=== PATIENT | male | born 1940 | race Caucasian/White ===

== ENCOUNTER → 2018-12-17 | Outpatient (CLI) | payer MEDICARE ==
[2018-12-17 17:21] LABS: Bilirubin, Urine Neg (Neg); Blood, Urine 1+ (Neg); Glucose Qualitative, Urine 4+ (Neg); Ketones, Urine 1+ (Neg); Leukocyte Esterase, Urine 1+ (Neg); Nitrite, Urine Neg (Neg); Protein, Urine 1+ (Neg); Specific Gravity, Urine 1.025 (1.003-1.022); Urobilinogen, Urine 1+ (Normal)
[2018-12-17 17:32] LABS: Appearance, Urine Clear (Clear); Color, Urine Yellow (P-Yellow)
[2018-12-17 17:33] LABS: White Blood Cells, Urine 25-50 /hpf (0-5); Yeast/Fungi Urine Few /hpf
[2018-12-17 17:34] LABS: Bacteria Mod /hpf; Calcium Oxalate Crystals Rare /hpf; Mucus Mod (0-Heavy); Squamous Epithelial Cells Few /hpf (Few)
== END | disposition home or self-care (01) ==
LOC: LAB SHORT 12:00 → LAB SRC 12:00
PROVIDERS: Nurse Practitioner Family
DX: E11.9 Type 2 diabetes mellitus without complications (principal); R33.9 Retention of urine, unspecified
CPT/HCPCS: 81001; 82043; 87086

== ENCOUNTER 2019-03-04 07:30 | Day surgery (SDC) | payer MEDICARE | END 2019-03-04 23:42 | disposition home or self-care (01) | LOC: WOUND 07:30 | PROC: 0HDMXZZ Extraction of Right Foot Skin, External Approach (ICD-10-PCS; principal; 2019-03-04) | DX: E11.621 Type 2 diabetes mellitus with foot ulcer (principal); L97.411 Non-pressure chronic ulcer of right heel and midfoot limited to breakdown of skin; E11.9 Type 2 diabetes mellitus without complications; M19.90 Unspecified osteoarthritis, unspecified site; E78.00 Pure hypercholesterolemia, unspecified; F03.90 Unspecified dementia, unspecified severity, without behavioral disturbance, psychotic disturbance, mood disturbance, and anxiety | CPT/HCPCS: 87071; 87075; 87205; G0463 ==

== ENCOUNTER 2019-06-13 19:04 | Emergency (ER) | payer MEDICARE ==
[~2019-06-13] VITALS: Ht 182.9 cm; Wt 81.7 kg
[2019-06-13] MEDS ORDERED: PIOGLITAZONE HC30 MG PO (19:13)
[2019-06-13] MEDS ORDERED: GLIP2.5ER PO (19:13)
[2019-06-13] MEDS ORDERED: Metformin HCl1000 MG PO (19:13)
[2019-06-13] MEDS ORDERED: PRINIVIL10 MG PO (19:13)
[2019-06-13] MEDS ORDERED: DONEPEZIL HCL5 M1 PO (19:13)
[2019-06-13 21:00] LABS: BASOPHILS ABSOLUTE AUTO 0.02 K/mm3 (0.00-0.23); BASOPHILS PERCENT AUTO 0 % (0-2); EOSINOPHILS PERCENT AUTO 0 % (0-6); Hematocrit 43.6 % (37.0-53.0); Hemoglobin 14.2 g/dL (13.5-17.5); IMMATURE GRAN ABSOLUTE AUTO 0.03 K/mm3 (0.00-0.10); IMMATURE GRAN PERCENT AUTO 0 % (0-1); LYMPHOCYTES PERCENT AUTO 7 % (21-46); MONOCYTES ABSOLUTE AUTO 0.69 K/mm3 (0.16-1.47); MONOCYTES PERCENT AUTO 7 % (4-13); Mean Corpuscular HGB Conc 32.6 g/dL (31.5-36.5); Mean Corpuscular Volume 98 fL (80-100); Mean Platelet Volume 9.7 fL (9.1-12.4); NEUTROPHILS ABSOLUTE AUTO 8.12 K/mm3 (1.96-9.15); NEUTROPHILS PERCENT AUTO 85 % (41-73); Platelet Count 287 K/mm3 (150-400); RDW Coefficient Variation 14.1 % (11.7-14.2); RDW Standard Deviation 50.9 fL (35.1-46.3); Red Blood Cell Count 4.44 M/mm3 (4.30-5.90); White Blood Cell Count 9.56 K/mm3 (4.00-11.30)
[2019-06-13 21:23] LABS: Alanine Aminotransfer (ALT/SGP 25 U/L (12-78); Albumin, Blood 3.2 g/dL (3.4-5.0); Albumin/Globulin Ratio 0.7 (0.8-1.8); Alk Phos 133 U/L (50-136); Anion Gap 5 mmol/L (6-16); Aspartate Aminotrans (AST/SGOT 23 U/L (12-37); Bilirubin, Total 0.6 mg/dL (0.1-1.0); Blood Urea Nitrogen 20 mg/dL (8-24); CO2, Blood 29 mmol/L (21-32); Calcium, Blood 9.4 mg/dL (8.5-10.1); Chloride, Blood 106 mmol/L (98-108); Creatinine, Blood 0.57 mg/dL (0.60-1.20); Globulin, Blood 4.3 g/dL (2.2-4.0); Glomerular Filtration Rate >60 (60-); Glucose, Blood 251 mg/dL (70-99); Magnesium, Blood 1.9 mg/dL (1.6-2.4); Potassium, Blood 4.1 mmol/L (3.5-5.5); Sodium, Blood 140 mmol/L (136-145); Total Protein, Blood 7.5 g/dL (6.4-8.2); Troponin I <0.015 ng/mL (0.000-0.040)
[2019-06-13 21:43] LABS: Source, Urine Voided
[2019-06-13 21:47] LABS: Appearance, Urine Clear (Clear); Bilirubin, Urine Neg (Neg); Blood, Urine 2+ (Neg); Color, Urine Amber (P-Yellow); Glucose Qualitative, Urine 4+ (Neg); Ketones, Urine 1+ (Neg); Leukocyte Esterase, Urine Neg (Neg); Nitrite, Urine Neg (Neg); Protein, Urine 1+ (Neg); Specific Gravity, Urine 1.015 (1.003-1.022); Urobilinogen, Urine 2+ (Normal)
[2019-06-13 21:53] LABS: Bacteria Few /hpf; Squamous Epithelial Cells Not Seen /hpf (Few); White Blood Cells, Urine 0-2 /hpf (0-5)
[2019-06-13 21:54] LABS: Hyaline Casts 0-2 /lpf (0-2)
[2019-06-13] MEDS ORDERED: AZIT500 PO (22:20)
== END 2019-06-13 23:28 | disposition home or self-care (01) ==
LOC: ER 19:04
PROVIDERS: Emergency Medicine
DX: J18.9 Pneumonia, unspecified organism (principal); R91.8 Other nonspecific abnormal finding of lung field; F03.90 Unspecified dementia, unspecified severity, without behavioral disturbance, psychotic disturbance, mood disturbance, and anxiety; Z87.891 Personal history of nicotine dependence; Z79.899 Other long term (current) drug therapy; Z79.84 Long term (current) use of oral hypoglycemic drugs
CPT/HCPCS: 36415; 51701; 70450; 71046; 80053; 81001; 83735; 84443; 84484; 85025; 93005; 93010; 96360-59; 96361-59; 99285-25; J7030

== ENCOUNTER 2019-07-24 17:23 | Observation (INO) | payer MEDICARE ==
[~2019-07-24] VITALS: Ht 185.4 cm; Wt 64.9 kg
[~2019-07-24 17:23] MED LIST: AZIT500 PO; DONEPEZIL HCL5 M1 PO; GLIP2.5ER PO; Metformin HCl1000 MG PO; PIOGLITAZONE HC30 MG PO; PRINIVIL10 MG PO
[2019-07-24 19:32] LABS: BASOPHILS ABSOLUTE AUTO 0.01 K/mm3 (0.00-0.23); BASOPHILS PERCENT AUTO 0 % (0-2); EOSINOPHILS PERCENT AUTO 0 % (0-6); Hematocrit 41.6 % (37.0-53.0); Hemoglobin 13.8 g/dL (13.5-17.5); IMMATURE GRAN ABSOLUTE AUTO 0.03 K/mm3 (0.00-0.10); IMMATURE GRAN PERCENT AUTO 0 % (0-1); LYMPHOCYTES ABSOLUTE AUTO 0.84 K/mm3 (0.84-5.20); LYMPHOCYTES PERCENT AUTO 10 % (21-46); MONOCYTES ABSOLUTE AUTO 0.54 K/mm3 (0.16-1.47); MONOCYTES PERCENT AUTO 7 % (4-13); Mean Corpuscular HGB 32.9 pg (26.0-34.0); Mean Corpuscular HGB Conc 33.2 g/dL (31.5-36.5); Mean Corpuscular Volume 99 fL (80-100); Mean Platelet Volume 9.4 fL (9.1-12.4); NEUTROPHILS ABSOLUTE AUTO 6.75 K/mm3 (1.96-9.15); NEUTROPHILS PERCENT AUTO 83 % (41-73); Platelet Count 303 K/mm3 (150-400); RDW Coefficient Variation 14.2 % (11.7-14.2); RDW Standard Deviation 51.6 fL (35.1-46.3); Red Blood Cell Count 4.19 M/mm3 (4.30-5.90); White Blood Cell Count 8.17 K/mm3 (4.00-11.30)
[2019-07-24 19:36] LABS: Source, Urine Clean Catch
[2019-07-24 19:40] LABS: Bilirubin, Urine Neg (Neg); Blood, Urine 5+ (Neg); Glucose Qualitative, Urine 4+ (Neg); Ketones, Urine 2+ (Neg); Leukocyte Esterase, Urine 1+ (Neg); Nitrite, Urine Neg (Neg); Protein, Urine 1+ (Neg); Specific Gravity, Urine 1.025 (1.003-1.022); Urobilinogen, Urine 1+ (Normal)
[2019-07-24 19:47] LABS: Appearance, Urine Clear (Clear); Color, Urine Yellow (P-Yellow)
[2019-07-24 19:51] LABS: Bacteria Few /hpf; Red Blood Cells, Urine 25-50 /hpf (0-2); Squamous Epithelial Cells Few /hpf (Few); White Blood Cells, Urine 0-2 /hpf (0-5)
[2019-07-24 19:52] LABS: Anion Gap 6 mmol/L (6-16); Blood Urea Nitrogen 24 mg/dL (8-24); Bun/Creatinine Ratio 37.2 (12.0-20.0); CO2, Blood 29 mmol/L (21-32); Calcium, Blood 9.6 mg/dL (8.5-10.1); Chloride, Blood 104 mmol/L (98-108); Creatinine, Blood 0.65 mg/dL (0.60-1.20); Glomerular Filtration Rate >60 (60-); Glucose, Blood 202 mg/dL (70-99); Potassium, Blood 4.2 mmol/L (3.5-5.5); Sodium, Blood 139 mmol/L (136-145)
--- NOTE | 2019-07-25 00:34 | NUR ---
4339 PT TO MEDICAL FLOOR VIA STRETCHER. PT ORIENTED TO ROOM. ADMIT ASSESSMENT COMPLETED. DECUBITIS ULCER PRESENT UPON ADMISSION ON BILATERAL HEEL AND COCCYX. HEEL PROTECTOR AND SACRAL MEPELIX APPLIED. PICTURES OF WOUNDS TAKEN. SIGNATURE FOR BLOOD CONSENT FORM AND CONSENT TO PHOTOGRAPH RECIVED. PT WAS OFFERED SNACKS. PLEASANT AND COOPERATIVE. A/O X1 TO SELF. DELAYS IN ANSWERING QUESTIONS. PT STATES HIS MEMORY CLOUDED. RESTING IN BED NOW.
--- NOTE | 2019-07-25 04:27 | NUR ---
RN ANESTHESIOLOGY SUMMARY PLESEANT AND COOPERATIVE UPON ADMIT. PT SLEPT WELL THROUGHOUT THE NIGHT. A/O1 TO SELF. SLOW TO RESPOND. HOSPITALIST CALLED AND NO IV ACCESS ORDER PLACED. BED ALARM ON, PT DID NOT GET UP FROM THE BED TONIGHT. BED IN LOWEST POSITION, CALL LIGHT WITHIN REACH. VSS, WILL CONTINUE TO MONITOR.
--- NOTE | 2019-07-25 16:48 | NUR ---
SHIFT SUMMARY PLAN IS FOR PLACEMENT TO A SNF. CAREGIVER STATES SHE CANNOT PROVIDE THE CARE THAT THIS PT NEEDS. PT IS ON ROOM AIR, INCONTINENT, ATTENDS IN PLACE. CONFUSED @ TIMES. AC CHEMSTICKS. CHANGED TODAY TO ADA DIET. A&O TO SELF AND PLACE. HX: DEMENTIA, DM 2, MENINGIOMAS. PT IS A 1 ASSIST W/FWW. HUMALOG WAS NEEDED THIS SHIFT FOR ELEVATED GLUCOSE LEVELS, SEE EMAR.
--- NOTE | 2019-07-26 05:19 | NUR ---
SHIFT SUMMARY: VSS. AFEB. ALERT, CONFUSED. DOES NOT COMMUNICATE HIS NEEDS WELL, RATHER SEEMS TO WAIT FOR STAFF TO ADDRESS NEEDS BEFORE SHARING HIS PREFERENCES. PT PULLED OFF HIS DNR AND ID BAND. DNR BAND PLACED ON DOOR FRAME. DENIES PAIN. DRSG IN PLACE TO COCCYX AND B HEELS. INCONTINENT, BED LOW, CALL BUTTON IN REACH, BED ALARM ON. HAS SLEPT MOST OF THE NIGHT.
--- NOTE | 2019-07-26 17:16 | NUR ---
PATIENT A/O, BED ALARM AND CHAIR ALARM USED FOR SAFETY. PATIENT DOES NOT USE CALL LIGHT AND REQUIRES FREQUENT CHECKS. INCONTINENT OF BOWEL AND BLADDER, WEARING ATTENDS. UP TO CHAIR WITH FWW, GAIT BELT AND SBA. CALM AND COOPERATIVE WITH CARE. BLOOD SUGAR THIS AM WAS 59, CAME UP WITH ORANGE JUICE AND BREAKFAST. DENIES ANY PAIN. HEEL DRESSING TO DECUB ULCERS REMAIN C/D/I. TOLERATING ADA DIET, NEEDS ENCOURAGEMENT TO EAT. SWALLOWS PILLS WHOLE WITH WATER. AWAITING PLACEMENT.
--- NOTE | 2019-07-27 05:36 | NUR ---
SHIFT SUMMARY PT HAS BEEN COOPERATIVE AND KIND, NO SIGNS OF AGITATION AT ALL. PT SPEAKS VERY FEW WORDS, BUT ANSWERS YES/NO QUESTIONS APPROP. ORIENTED TO SELF, PLACE, SURROUNDINGS. BED ALARM ON FOR SAFETY, HOWEVER PT HAS NOT BEEN IMPULSIVE TONIGHT. VSS, LS DIM, RESP E/U ON RA. INCONTINENT OF BOWEL AND BLADDER, MINIOR SKIN BREAKDOWN NOTED TO COCCYX, MEPILEX CHANGED TONIGHT AND REPOSITIONED Q2H. DENIES ANY PAIN OR DISCOMFORT. ADMINISTERED 15 UNITS LANTUS TONIGHT WITH A SNACK, ABLE TO FEED SELF. WILL CONT TO MONITOR AND PROVIDE CARE UNTIL PRESUMED BY ONCOMING RN.
--- NOTE | 2019-07-27 18:36 | NUR ---
PATIENT A/OX3, CONFUSED ABOUT SITUTATION AT TIMES. UP TO CHAIR FOR BREAKFAST AND HAS REFUSED TO GET UP FOR LUNCH AND DINNER. PATIENT WAS VERY TIRED THIS SHIFT AND NOT INTERESTED IN HIS MEALS. VSS, ON RA. FOAM DRESSINGS TO HEELS REMAIN C/D/I, MEPILEX TO PRESSURE SORE ON COCCYX CHANGED TODAY. PATIENT INCONTINENT OF BOWEL AND BLADDER. AWAITING PLACEMENT.
--- NOTE | 2019-07-28 05:55 | NUR ---
SHIFT SUMMARY: BP 88/60 AT START OF SHIFT, UP TO 100/59 UPON RECHECK. AFEB. MAINTAINING 02 WNL ON RA. A/O X2, CONFUSED AT BASELINE. PLEASANT. DOES NOT COMMUNICATE NEEDS UNLESS PROMPTED. RETURNS TO RIGHT SIDE LYING POSITION AFTER TURNS. DENIES PAIN. APPEARS TO HAVE SLEPT OFF AND ON. BED LOW, ALARM ON, CALL BUTTON IN REACH.
--- NOTE | 2019-07-28 17:13 | NUR ---
SHIFT SUMMARY PT HAS BEEN LAYING IN BED ALL SHIFT. PT HAS DECLINED TO GET OUT OF BED FOR PHYSICAL THERAPY AND STAFF FOR MEALS. PT INCONTINENT OF URINE AND STOOLS THIS SHIFT. DRESSING TO COCCYX AND HEELS CHANGED THIS SHIFT WITH BEDBATH. NO ACUTE CHANGES THIS SHIFT. PT WAITING FOR PLACEMENT. CALL LIGHT IN REACH AND BED ALARM ON FOR SAFETY. WILL CONTINUE TO MONITOR FOR CHANGES AND REPORT TO ONCOMING RN.
--- NOTE | 2019-07-29 07:51 | NUR ---
SHIFT SUMMARY PATIENT SEEMED FLAT AND WITHDRAWN THIS SHIFT. HE VERBALIZES A DESIRE TO GET OUT OF THE HOSPITAL AND GO HOME. HE ASKED TWICE OVER NIGHT FOR PRN TYLENOL TO HELP WITH HIS CHRONIC BACK PAIN. HE WAS ABLE TO SLEEP MOST OF THE NIGHT. BED IN LOWEST POSITION WITH WHEELS LOCKED AND ALARM ON. CALL LIGHT WITHIN REACH. REPORT GIVEN TO ONCOMING RN.
--- NOTE | 2019-07-29 15:37 | NUR ---
PT DISCHARGED PT DISCHARGED IN STABLE CONDITION WITH VSS. NO CHANGES IN ASSESSMENT PRIOR TO DC. PT WOUNDS REDRESSED & PICS TAKEN. PT DRESSED & CHANGED PRIOR TO DC. [facility] PICKED UP PT & TRANSPORTING HOME INTO CARE OF HIS CAREGIVER. DC INSTRUCTIONS SENT WITH PT.
== END 2019-07-29 15:33 | disposition home or self-care (01) ==
LOC: ER 17:23 → MEDS 17:24
PROVIDERS: Physician Assistant; ADMIT Hospitalist
DX: F01.50 Vascular dementia, unspecified severity, without behavioral disturbance, psychotic disturbance, mood disturbance, and anxiety (principal); D32.0 Benign neoplasm of cerebral meninges; E11.9 Type 2 diabetes mellitus without complications; Z66 Do not resuscitate; Z79.84 Long term (current) use of oral hypoglycemic drugs; Z79.899 Other long term (current) drug therapy; Z96.653 Presence of artificial knee joint, bilateral; Z86.73 Personal history of transient ischemic attack (TIA), and cerebral infarction without residual deficits; Z87.891 Personal history of nicotine dependence
CPT/HCPCS: 36415; 51701; 70450; 80048; 81001; 82947; 85025; 97110; 97116; 97161; 97530; 99285-25; A9270; J1650

== ENCOUNTER 2019-08-05 14:49 | Emergency (ER) | payer MEDICARE ==
[~2019-08-05] VITALS: Ht 182.9 cm; Wt 65.0 kg
[2019-08-05] MEDS ORDERED: LIDO700A20 TOP (16:04)
== END 2019-08-05 17:00 | disposition home or self-care (01) ==
LOC: ER 14:49
DX: M54.5 Low back pain (principal); Z79.899 Other long term (current) drug therapy; Z79.84 Long term (current) use of oral hypoglycemic drugs; F03.90 Unspecified dementia, unspecified severity, without behavioral disturbance, psychotic disturbance, mood disturbance, and anxiety; Z87.891 Personal history of nicotine dependence
CPT/HCPCS: 72100; 99283-25

== ENCOUNTER 2019-08-20 11:02 | Emergency (ER) | payer MEDICARE ==
[~2019-08-20] VITALS: Ht 177.8 cm; Wt 61.2 kg
[~2019-08-20 11:02] MED LIST changes: +LIDO700A20 TOP
[2019-08-20 13:01] LABS: BASOPHILS ABSOLUTE AUTO 0.02 K/mm3 (0.00-0.23); BASOPHILS PERCENT AUTO 0 % (0-2); EOSINOPHILS ABSOLUTE AUTO 0.01 K/mm3 (0.00-0.68); EOSINOPHILS PERCENT AUTO 0 % (0-6); Hematocrit 46.7 % (37.0-53.0); IMMATURE GRAN ABSOLUTE AUTO 0.04 K/mm3 (0.00-0.10); IMMATURE GRAN PERCENT AUTO 1 % (0-1); LYMPHOCYTES ABSOLUTE AUTO 0.97 K/mm3 (0.84-5.20); LYMPHOCYTES PERCENT AUTO 12 % (21-46); MONOCYTES ABSOLUTE AUTO 0.54 K/mm3 (0.16-1.47); MONOCYTES PERCENT AUTO 7 % (4-13); Mean Corpuscular HGB 32.1 pg (26.0-34.0); Mean Corpuscular HGB Conc 32.1 g/dL (31.5-36.5); Mean Corpuscular Volume 100 fL (80-100); Mean Platelet Volume 9.5 fL (9.1-12.4); NEUTROPHILS ABSOLUTE AUTO 6.56 K/mm3 (1.96-9.15); NEUTROPHILS PERCENT AUTO 81 % (41-73); Platelet Count 293 K/mm3 (150-400); RDW Coefficient Variation 14.2 % (11.7-14.2); RDW Standard Deviation 51.9 fL (35.1-46.3); Red Blood Cell Count 4.68 M/mm3 (4.30-5.90); White Blood Cell Count 8.14 K/mm3 (4.00-11.30)
[2019-08-20 13:25] LABS: Alanine Aminotransfer (ALT/SGP 24 U/L (12-78); Albumin, Blood 3.2 g/dL (3.4-5.0); Albumin/Globulin Ratio 0.7 (0.8-1.8); Alk Phos 101 U/L (50-136); Anion Gap 6 mmol/L (6-16); Aspartate Aminotrans (AST/SGOT 15 U/L (12-37); Bilirubin, Total 0.5 mg/dL (0.1-1.0); Blood Urea Nitrogen 14 mg/dL (8-24); CO2, Blood 29 mmol/L (21-32); Calcium, Blood 9.3 mg/dL (8.5-10.1); Chloride, Blood 105 mmol/L (98-108); Creatinine, Blood 0.48 mg/dL (0.60-1.20); Globulin, Blood 4.4 g/dL (2.2-4.0); Glomerular Filtration Rate >60 (60-); Glucose, Blood 186 mg/dL (70-99); Potassium, Blood 4.5 mmol/L (3.5-5.5); Sodium, Blood 140 mmol/L (136-145); Total Protein, Blood 7.6 g/dL (6.4-8.2)
[2019-08-20 13:44] LABS: Source, Urine Clean Catch
[2019-08-20 13:50] LABS: Appearance, Urine Clear (Clear); Bilirubin, Urine Neg (Neg); Blood, Urine 2+ (Neg); Color, Urine Yellow (P-Yellow); Glucose Qualitative, Urine 4+ (Neg); Ketones, Urine 1+ (Neg); Leukocyte Esterase, Urine 1+ (Neg); Nitrite, Urine Neg (Neg); Protein, Urine 2+ (Neg); Specific Gravity, Urine 1.025 (1.003-1.022); Urobilinogen, Urine 1+ (Normal)
[2019-08-20 14:09] LABS: Amorphous Light (0-Heavy); Bacteria Few /hpf; Squamous Epithelial Cells Rare /hpf (Few)
== END 2019-08-20 15:34 | disposition home or self-care (01) ==
LOC: ER 11:02
PROVIDERS: Physician Assistant
DX: S63.502A Unspecified sprain of left wrist, initial encounter (principal); F03.90 Unspecified dementia, unspecified severity, without behavioral disturbance, psychotic disturbance, mood disturbance, and anxiety; Z79.899 Other long term (current) drug therapy; W19.XXXA Unspecified fall, initial encounter
CPT/HCPCS: 36415; 51701; 73110; 73130; 73502; 80053; 81001; 85025; 87086; 99284-25

== ENCOUNTER 2019-08-21 22:38 | Observation (INO) | payer MEDICARE ==
[~2019-08-21] VITALS: Ht 182.9 cm; Wt 63.0 kg
[2019-08-22 00:39] LABS: BASOPHILS ABSOLUTE AUTO 0.02 K/mm3 (0.00-0.23); BASOPHILS PERCENT AUTO 0 % (0-2); EOSINOPHILS ABSOLUTE AUTO 0.01 K/mm3 (0.00-0.68); EOSINOPHILS PERCENT AUTO 0 % (0-6); Hematocrit 40.4 % (37.0-53.0); Hemoglobin 13.1 g/dL (13.5-17.5); IMMATURE GRAN ABSOLUTE AUTO 0.02 K/mm3 (0.00-0.10); IMMATURE GRAN PERCENT AUTO 0 % (0-1); LYMPHOCYTES ABSOLUTE AUTO 0.67 K/mm3 (0.84-5.20); LYMPHOCYTES PERCENT AUTO 12 % (21-46); MONOCYTES ABSOLUTE AUTO 0.41 K/mm3 (0.16-1.47); MONOCYTES PERCENT AUTO 7 % (4-13); Mean Corpuscular HGB 32.3 pg (26.0-34.0); Mean Corpuscular HGB Conc 32.4 g/dL (31.5-36.5); Mean Corpuscular Volume 100 fL (80-100); Mean Platelet Volume 9.3 fL (9.1-12.4); NEUTROPHILS ABSOLUTE AUTO 4.47 K/mm3 (1.96-9.15); NEUTROPHILS PERCENT AUTO 80 % (41-73); Platelet Count 257 K/mm3 (150-400); RDW Coefficient Variation 13.9 % (11.7-14.2); RDW Standard Deviation 51.1 fL (35.1-46.3); Red Blood Cell Count 4.06 M/mm3 (4.30-5.90)
[2019-08-22 00:58] LABS: Alanine Aminotransfer (ALT/SGP 17 U/L (12-78); Albumin, Blood 3.1 g/dL (3.4-5.0); Albumin/Globulin Ratio 0.8 (0.8-1.8); Alk Phos 100 U/L (50-136); Anion Gap 6 mmol/L (6-16); Aspartate Aminotrans (AST/SGOT 19 U/L (12-37); Bilirubin, Total 0.7 mg/dL (0.1-1.0); Blood Urea Nitrogen 19 mg/dL (8-24); Bun/Creatinine Ratio 38.6 (12.0-20.0); CO2, Blood 29 mmol/L (21-32); Calcium, Blood 9.1 mg/dL (8.5-10.1); Chloride, Blood 105 mmol/L (98-108); Creatinine, Blood 0.49 mg/dL (0.60-1.20); Globulin, Blood 3.9 g/dL (2.2-4.0); Glomerular Filtration Rate >60 (60-); Glucose, Blood 176 mg/dL (70-99); Potassium, Blood 4.2 mmol/L (3.5-5.5); Sodium, Blood 140 mmol/L (136-145)
--- NOTE | 2019-08-22 05:42 | NUR ---
08/22/19 0562 PALLIATIVE CARE CONSULT NOTIFIED VIA [employer]. PT RESTING IN BED. HAD C/O CHILLS AND WARM BLANKETS GIVEN. TAKING ONLY FEW SIPS OF WATER. CONFUSED TO ALL BUT SELF. WAS ABLE TO REMEMBER HIS HISTORY BUT NOT HIS MEDS. BED ALARM ON. VITALS STABLE. RN WILL NOTIFY DAY SHIFT RN ABOUT CONTACTING CAREGIVER FOR LIST OF CURRENT MEDS.
--- NOTE | 2019-08-22 18:31 | NUR ---
PT ORIENTED TO SELF ONLY, ABLE TO ANSWER SIMPLE QUESTION. CURRENT MED LIST RECEIVED FROM DR EPSTEIN AND UPDATED IN Language Learning Class. PT HAS BEEN ACCEPTED TO [facility] PENDING RECEIVING INSURANCE AUTH. PACKET IN [employer]. HOOKER UP WILL WORK ON GETTING AUTH TOMORROW. WILL CONTINUE TO MONITOR AND REPORT TO ONCOMING RN
--- NOTE | 2019-08-23 06:09 | NUR ---
SHIFT SUMMARY PT IS AN 79 Y/O MALE, ADMITTED FOR MULTIPLE FALLS AT HOME. PT IS A&O X SELF, AND A 1-2PA UP IN THE ROOM. NO COMPLAINTS OF PAIN, NAUSEA OR SOB. 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 VITAL SIGNS STABLE. NO ACUTE CHANGES IN PT CONDITION NOTED. WILL CONTINUE TO MONITOR AND TREAT PER EMAR UNTIL HAND OFF TO DAY SHIFT RN.
--- NOTE | 2019-08-23 12:25 | NUR ---
INSURANCE AUTHORIZATION RECEIVED, SPOKE WITH DR RANDOLPH WHO IS READY TO DISCHARGE PTWanda FULLER AT [facility] ADMISSION NOTIFIED AND AUTHORIZATION NUMBER GIVEN, #[id number]. AWAITING DISCHARGE ORDERS AND WILL SCHEDULE [facility] TRANSPORT TO [facility].
--- NOTE | 2019-08-23 13:00 | NUR ---
HE HAS BEEN UP FOR BOTH MEALS WITH A REST IN BETWEEN. HE ALSO WORKED WITH PT. HE IS PLEASANTLY CONFUSED. HIS CAREGIVER/P.O.A. WAS HERE EARLIER. THERE IS A DC ORDER TO REHAB NOW. CHARGE NURSE HAS CALLED AND FAXED [facility]. WILL ARRANGE A RIDE. I WILL CALL LAKISHA HIS CAREGIVER TO INFORM HER.
[2019-08-23] MEDS ORDERED: Vsl#3 Capsule1 EACH PO (13:13)
[2019-08-23] MEDS ORDERED: Amoxicillin500 MG PO (13:13)
--- NOTE | 2019-08-23 13:14 | NUR ---
SNF ORDERS FAXED TO [facility]IN[facility]. [facility] TRANSPORT SCHEDULED FOR [id number].
--- NOTE | 2019-08-23 13:37 | NUR ---
I JUST NOTIFIED LAKISHA HIS P.O.A. THAT HE WILL LEAVE HERE AT 1415 TO GO TO [facility].
--- NOTE | 2019-08-23 14:49 | NUR ---
DISCHARGED TO [facility] FOR REHAB WITH HIS BELONGINGS AND TRANSFER PACKET. CALLING REPORT NOW TO [facility]. HIS CAREGIVER LAKISHA HAS BEEN NOTIFIED.
== END 2019-08-23 14:48 ==
LOC: ER 22:38 → MEDS 22:39
PROVIDERS: Emergency Medicine; ADMIT Internal Medicine
DX: R29.6 Repeated falls (principal); F03.90 Unspecified dementia, unspecified severity, without behavioral disturbance, psychotic disturbance, mood disturbance, and anxiety; I10 Essential (primary) hypertension; E11.9 Type 2 diabetes mellitus without complications; E46 Unspecified protein-calorie malnutrition; N39.0 Urinary tract infection, site not specified; B95.4 Other streptococcus as the cause of diseases classified elsewhere; Z74.09 Other reduced mobility; Z86.73 Personal history of transient ischemic attack (TIA), and cerebral infarction without residual deficits; Z87.891 Personal history of nicotine dependence; Z66 Do not resuscitate; Z79.84 Long term (current) use of oral hypoglycemic drugs; Z79.899 Other long term (current) drug therapy; J44.9 Chronic obstructive pulmonary disease, unspecified; Z68.1 Body mass index [BMI] 19.9 or less, adult
CPT/HCPCS: 36415; 71101; 80053; 82947; 83605; 84145; 85025; 87040; 93005; 93010; 96365; 96366; 96368; 97162; 97166; 97530; 97535; 99285-25; G0378; J0456; J0696; J7050